=== PATIENT | female | born 1975 | race Caucasian/White ===

== ENCOUNTER 2022-11-19 09:54 | Inpatient (IN) ==
[2022-11-19] MEDS ORDERED: NovoLIN R (or HumuLIN R) SC PRN ×2 (12:06→20:32)
[2022-11-19] MEDS ORDERED: VISTARIL PO PRN (12:06)
[2022-11-19 13:44] LABS: BASOPHILS # (AUTO) 0.1 X10^3/uL (0.0-0.1); BASOPHILS % (AUTO) 0.6 % (0.2-1.0); EOSINOPHILS # (AUTO) 0.3 x10^3/uL (0.0-0.2); EOSINOPHILS % (AUTO) 2.3 % (0.9-2.9); HEMATOCRIT 48.3 % (36.0-47.0); HEMOGLOBIN 16.7 g/dL (12.0-16.0); LYMPHOCYTES # (AUTO) 2.7 X10^3/uL (1.3-2.9); LYMPHOCYTES % (AUTO) 19.1 % (21.0-51.0); MEAN CORPUSCULAR HEMOGLOBIN 27.6 pg (27.0-34.0); MEAN CORPUSCULAR HGB CONC 34.5 g/dL (33.0-35.0); MEAN CORPUSCULAR VOLUME 79.9 fL (80.0-100.0); MEAN PLATELET VOLUME 7.2 fL (7.4-11.0); MONOCYTES % (AUTO) 7.1 % (0.0-13.0); NEUTROPHILS # (AUTO) 10.1 x10^3/uL (2.2-4.8); NEUTROPHILS % (AUTO) 70.9 % (42.0-75.0); RED BLOOD COUNT 6.05 X10^6/uL (3.5-5.4); RED CELL DISTRIBUTION WIDTH 13.5 % (11.6-16.5); WHITE BLOOD COUNT 14.2 X10^3/uL (3.6-10.0)
[2022-11-19 13:57] LABS: ALANINE AMINOTRANSFERASE 25 Units/L (12-78); ALBUMIN 3.2 g/dL (3.4-5.0); ALKALINE PHOSPHATASE 131 Units/L (46-116); ASPARTATE AMINO TRANSFERASE 25 Units/L (15-37); BLOOD UREA NITROGEN 7 mg/dL (7-18); CALCIUM 9.3 mg/dL (8.5-10.1); CARBON DIOXIDE 30.5 mmol/L (21-32); CHLORIDE 94 mmol/L (98-107); COR CA(FOR HYPOALB) 9.9 mg/dL (8.5-10.1); COR NA(FOR HYPERGLY) 134 mmol/L (136-145); CREATININE 0.82 mg/dL (0.55-1.02); SODIUM 134 mmol/L (136-145); TOTAL PROTEIN 8.4 g/dL (6.4-8.2); eGFR NON BLACK RACES > 60 (>60)
[2022-11-19] MEDS: ZOSYN VIAL 3.375 GRAMS 3.375 G in NS 100 ML IV 100 ML IV SCH ×3 (14:15→21:26)
[2022-11-19] MEDS: LR 1,000 ML IV 1,000 ML IV SCH (14:27)
--- NOTE | 2022-11-19 16:52 | CT ---
HISTORYLEFT LEG ISCHEMIC ULCERSTUDYCTA AORTA WITH RUNOFFCOMPARISONTECHNIQUESpiral CT imaging was performed from the lung bases through the feet both before and after the intravenous administration of iodinated contrast. Axial, coronal, sagittal, and 3D images were generated. Dose reduction techniques including Automated Exposure Control (AEC) and adjustment of mA and kV were utilized.FINDINGSAbdomen/pelvis: The lung bases are clear without effusion. The heart size is normal. There is atherosclerosis in the LAD, 1st diagonal, circumflex, and RCA. The liver is normal. There is a stone in the gallbladder but no evidence for cholecystitis. The pancreas is mildly atrophic. The spleen, adrenal glands, and kidneys are normal. The stomach and small bowel are normal. The appendix is not visualized but there is no evidence for appendicitis. The large bowel is normal. The urinary bladder is normal. The uterus is atrophic. There is no adnexal mass. There is a wide postsurgical defect in the right lower abdominal wall with no risk for bowel obstruction.There is no aneurysm in the aorta. There is mild heterogeneous plaque in the abdominal aorta. There is no evidence for obstruction of the celiac trunk or the SMA or the proximal renal arteries. There is mild disease in the common iliac bilaterally. There is moderate disease in the external and internal iliac arteries. There is also heterogeneous plaque in the common femoral bilaterally, left worse than right.Right leg: There is heterogeneous plaque in the common femoral and in the superficial and deep femoral arteries. There is heterogeneous plaque in the popliteal artery. The anterior tibial artery is normal. There is heterogeneous plaque in the tibioperoneal trunk and in the posterior tibial artery proximally. There is 3 vessel runoff to the foot with the best flow in the anterior tibial artery.Left leg: There is heterogeneous plaque in the common femoral and severely in the superficial femoral. All flow ceases in the proximal to mid left SFA. There continues to be flow in the deep femoral artery. Contrast enhancement is again seen in the popliteal artery at the adductor hiatus. There is severe soft plaque in the popliteal artery. There is plaque at the origin of the anterior tibial artery and in the tibioperoneal trunk. There is 3 vessel flow to the ankle. The arterial flow and venous return are delayed in the left leg as compared to the right leg.IMPRESSION1. Complete occlusion of the left SFA with reconstitution at the adductor canal. 2. Fairly severe diffuse atherosclerosis bilaterally most pronounced from the external iliac arteries and distally. 3. Cholelithiasis.Electronically signed by: Nathaniel Sheldon (Nov 19, 2022 16:36:35)
--- NOTE | 2022-11-19 20:55 | DR.H&P ---
H&P History & Physical for Day of: H&P Date: 11/19/22 Chief Complaint Chief Complaint: 46 yo female with non-healing wound to the let heel and lateral foot with no palpable pulses of the left foot. Significant tobacco abuse and has diet controlled diabetes . Ulcer/ wound to the left lateral foot is painful. Duplex shows monophasic flow of the left superficial femoral artery and completely occluded left superficial femoral artery . Flow is near normal of the right leg. CTA performed today and showed complete total occlusion of the left SFA from its takeoff to the adductor canal. Diffuse arterial disease on the right leg arteries. No history of chest pain or shortness of breath. Allergies Allergies Allergy/AdvReac Type Severity Reaction Status Date / Time No Known Allergies Allergy Verified 11/19/22 14:04 History of Present Illness History of Present Illness: as above Past Medical History Past Medical History: Arthritis, Dyslipidemia and Hypertension Past Surgical History Surgical History: Appendectomy Family History Family Medical History: Cancer and Hypertension Social History Does patient currently use any type of tobacco product: Yes Have you used tobacco products in the last 12 months: Yes Type of Tobacco Use: Cigarettes How many years tobacco product used: 35 Packs per day or dips/chews per day: 1 Does any household member use tobacco: No Alcohol Use: None Drug Use: None Medications Home Medications: No Known Allergies Allergy (Verified 11/19/22 14:04) CONTINUE taking the following medications atorvastatin 40 mg tablet 40 mg PO HS 11/19/22 [History] cyclobenzaprine 10 mg tablet 10 mg PO BID 11/19/22 [History] gabapentin 600 mg tablet 300 mg PO HS 11/19/22 [History] glimepiride 2 mg tablet 2 mg PO DAILY 11/19/22 [History] hydroxyzine pamoate 25 mg capsule 25 mg PO HS 11/19/22 [History] lisinopril 20 mg tablet 20 mg PO DAILY 11/19/22 [History] meclizine 25 mg tablet 25 mg PO DAILY PRN 11/19/22 [History] metformin 500 mg tablet,extended release 24 hr 1,000 mg PO BID 11/19/22 [History] metoprolol tartrate 25 mg tablet 25 mg PO BID 11/19/22 [History] sulfamethoxazole 800 mg-trimethoprim 160 mg tablet (Bactrim DS) 1 tab PO BID 11/19/22 [History] Labs Result Diagrams: 11/19/22 13:33 11/19/22 13:33 Labs: Laboratory WBC 14.2 X10^3/uL (3.6-10.0) H 11/19/22 13:33 RBC 6.05 X10^6/uL (3.5-5.4) H 11/19/22 13:33 Hgb 16.7 g/dL (12.0-16.0) H 11/19/22 13:33 Hct 48.3 % (36.0-47.0) H 11/19/22 13:33 MCV 79.9 fL (80.0-100.0) L 11/19/22 13:33 MCH 27.6 pg (27.0-34.0) 11/19/22 13:33 MCHC 34.5 g/dL (33.0-35.0) 11/19/22 13:33 RDW 13.5 % (11.6-16.5) 11/19/22 13:33 Plt Count 411 X10^3/uL (150.0-450.0) 11/19/22 13:33 MPV 7.2 fL (7.4-11.0) L 11/19/22 13:33 Neut % (Auto) 70.9 % (42.0-75.0) 11/19/22 13:33 Lymph % (Auto) 19.1 % (21.0-51.0) L 11/19/22 13:33 [place] % (Auto) 7.1 % (0.0-13.0) 11/19/22 13:33 Eos % (Auto) 2.3 % (0.9-2.9) 11/19/22 13:33 Baso % (Auto) 0.6 % (0.2-1.0) 11/19/22 13:33 Neut # (Auto) 10.1 x10^3/uL (2.2-4.8) H 11/19/22 13:33 Lymph # (Auto) 2.7 X10^3/uL (1.3-2.9) 11/19/22 13:33 [place] # (Auto) 1.0 x10^3/uL (0.3-0.8) H 11/19/22 13:33 Eos # (Auto) 0.3 x10^3/uL (0.0-0.2) H 11/19/22 13:33 Baso # (Auto) 0.1 X10^3/uL (0.0-0.1) 11/19/22 13:33 Absolute Nucleated RBC 0.1 /100WBC 11/19/22 13:33 Sodium 134 mmol/L (136-145) L 11/19/22 13:33 Corrected Sodium 134 mmol/L (136-145) L 11/19/22 13:33 Potassium 3.9 mmol/L (3.5-5.1) 11/19/22 13:33 Chloride 94 mmol/L (98-107) L 11/19/22 13:33 Carbon Dioxide 30.5 mmol/L (21-32) 11/19/22 13:33 BUN 7 mg/dL (7-18) 11/19/22 13:33 Creatinine 0.82 mg/dL (0.55-1.02) 11/19/22 13:33 Est GFR (MDRD) Af Amer > 60 (>60) 11/19/22 13:33 Est GFR (MDRD) Non-Af > 60 (>60) 11/19/22 13:33 Glucose 117 mg/dL (65-99) H 11/19/22 13:33 POC Glucose (mg/dL) 113 mg/dL (65-99) H 11/19/22 15:50 Calcium 9.3 mg/dL (8.5-10.1) 11/19/22 13:33 Corrected Calcium 9.9 mg/dL (8.5-10.1) 11/19/22 13:33 Total Bilirubin 0.70 mg/dL (0.2-1.0) 11/19/22 13:33 AST 25 Units/L (15-37) 11/19/22 13:33 ALT 25 Units/L (12-78) 11/19/22 13:33 Alkaline Phosphatase 131 Units/L (46-116) H 11/19/22 13:33 Total Protein 8.4 g/dL (6.4-8.2) H 11/19/22 13:33 Albumin 3.2 g/dL (3.4-5.0) L 11/19/22 13:33 Globulin 5.2 g/dL (2.5-4.5) H 11/19/22 13:33 Albumin/Globulin Ratio 0.6 Ratio (1.1-2.1) L 11/19/22 13:33 Review of Systems Constitutional: See HPI Eyes: No Symptoms Reported ENT: No Symptoms Reported Respiratory: No Symptoms Reported Cardiovascular: No Symptoms Reported Gastrointestinal: No Symptoms Reported Genitourinary: No Symptoms Reported Musculoskeletal: See HPI Skin: See HPI Neurological: No Symptoms Reported Physical Exam Vital Signs: Temperature 98 F Pulse Rate [Left Radial] 92 Respiratory Rate 18 Blood Pressure [Left Arm] 138/78 O2 Sat by Pulse Oximetry 95 Oriented: Normal, Time, Person and Place Eyes: Normal; negative Blurred Vision or Diplopia Ear: Normal Nose: Normal Throat: Normal Respiratory: Clear Throughout Cardiovascular: Normal : Normal; negative Dysuria or Discharge Auscultation: Bowel Sounds: Normal Palpation: Normal Tenderness: Normal Skin: Wound (6x 6 x 1 cm necrotic wound to the left heel and posterior lateral foot. ) Musculoskeletal: Normal Psychiatric: Normal Mood Description: Fearful Affect: Anxious Speech Pattern: Clear Assessment/Plan (1) Atherosclerosis of [place] arteries of extremities with rest pain, right leg: Status: Acute Plan: To OR in AM for arteriogram left leg, atherectomy and drug coated balloon angioplasty of occluded left superficial femoral artery. High risk of limb loss. Risk of discussed with the patient. She agrees to proceed. (2) Type 2 diabetes mellitus without complications: Status: Acute Plan: Sliding scale insulin, check HgB A1c (3) Essential (primary) hypertension: Status: Acute Plan: Home medications (4) Endogenous hyperlipidemia: Status: Acute Plan: Home medications (5) Neuropathic diabetic ulcer of foot: Status: Acute (6) Cellulitis of left foot: Status: Acute Plan: IV antibiotics (7) Tobacco use: Status: Acute Review H&P Reviewed: Yes Patient was examined?: Yes
[2022-11-19] MEDS: FLEXERIL TAB 10 MG PO SCH (21:27)
[2022-11-19] MEDS: LOPRESSOR TAB 25 MG PO SCH (21:27)
[2022-11-19] MEDS: PERCOCET TAB 5/325 MG PO PRN (21:35)
[2022-11-20] MEDS: LR 1,000 ML IV 1,000 ML IV SCH ×3 (01:18→18:07)
[2022-11-20] MEDS: ZOSYN VIAL 3.375 GRAMS 3.375 G in NS 100 ML IV 100 ML IV SCH ×3 (05:05→21:47)
[2022-11-20] MEDS: CLARITIN PO SCH (08:14)
[2022-11-20] MEDS: ANTIVERT TAB 25 MG PO SCH (08:14)
[2022-11-20] MEDS: FLEXERIL TAB 10 MG PO SCH ×2 (08:15→20:23)
[2022-11-20] MEDS: MOBIC TAB 15 MG PO SCH (08:15)
[2022-11-20] MEDS: LOPRESSOR TAB 25 MG PO SCH ×2 (08:15→20:23)
[2022-11-20] MEDS: LIPITOR TAB 40 MG PO SCH (08:15)
[2022-11-20] MEDS: ZESTRIL TAB 20 MG PO SCH (08:15)
[2022-11-20] MEDS: NORVASC TAB 5 MG PO SCH (08:15)
[2022-11-20] MEDS: FLONASE NASAL SPRAY ENOSTRIL SCH (09:12)
--- NOTE | 2022-11-20 10:41 | RAD ---
HISTORYPreop wound surgerySTUDYChest AP portableCOMPARISONNoneFINDINGSHeart size is normal. Lulú are normal. Lung collazo are clear. No pleural effusions are identified. Bony thorax is unremarkable.IMPRESSIONNo significant abnormality identifiedElectronically signed by: FAISAL RANDHAWA (Nov 20, 2022 10:40:23)
[2022-11-20] MEDS ORDERED: NS 1,000 ML IV 1,000 ML ONE ×2 (13:34→15:51)
[2022-11-20] MEDS ORDERED: NS 100 ML IV 100 ML ONE (13:34)
[2022-11-20] MEDS ORDERED: ANCEF VIAL 1 GRAM ONE (13:34)
[2022-11-20] MEDS ORDERED: HEPARIN SODIUM IN D5W 75,000 UNITS/1,500 ML BAG ONE (13:42)
[2022-11-20] MEDS ORDERED: MARCAINE/EPINEPHRINE ONE (13:42)
[2022-11-20] MEDS ORDERED: FENTANYL VIAL INJ 100 mcg ONE ×2 (13:46→15:19)
[2022-11-20] MEDS ORDERED: VERSED ONE (13:46)
[2022-11-20] MEDS ORDERED: DIPRIVAN VIAL 40 ML ONE ×2 (13:46→15:06)
[2022-11-20] MEDS ORDERED: KETAMINE HCL ONE (14:19)
[2022-11-20] MEDS ORDERED: PRECEDEX INJ VIAL IVP ONE (14:28)
[2022-11-20] MEDS ORDERED: HEPARIN SODIUM INJ 5000 UNITS ONE (14:56)
[2022-11-20] MEDS ORDERED: NS 500 ML IV 500 ML IV ONE (15:33)
[2022-11-20] MEDS: HEPARIN SODIUM INJ 5000 UNITS ONE ×2 (15:49)
[2022-11-20] MEDS ORDERED: DIPRIVAN VIAL 20 ML ONE (15:57)
[2022-11-20] MEDS ORDERED: PROTAMINE SULFATE 50 MG VIAL ONE ×2 (16:12)
[2022-11-20] MEDS ORDERED: NEOSPORIN OINT ONE (16:29)
--- NOTE | 2022-11-20 17:28 | OR.IMMED ---
IMMEDIATE POST-OP NOTE Immediate Post-Op Note Pre-Op Diagnosis: Severe limb threatening ischemia left leg with necrotic woun d left lateral foot and left heel Post-Op Diagnosis: same Procedure: aortogram,arteriogram left leg , atherectomy and drug coated balloon angioplasty completely occluded left superficial femoral artery, angioplasty left posterior tibial artery. Description of Procedure: see operative summary Surgeon/Hr Manager: Tyler Findings: ESTIMATOR JEWELRY of entir left SFA from its takeoff to the adductor canal, severe disease left posterior tibial artery Estimated Blood Loss: 150 cc Drains: NONE Complications: none Progress Notes: Return to floor, continue diet, Continue IV antibiotics
[2022-11-20] MEDS: PERCOCET TAB 5/325 MG PO PRN (18:23)
[2022-11-20] MEDS: XARELTO PO SCH (20:23)
[2022-11-21] MEDS: LR 1,000 ML IV 1,000 ML IV SCH ×2 (04:00→16:28)
[2022-11-21] MEDS: PERCOCET TAB 5/325 MG PO PRN ×2 (04:01→13:39)
[2022-11-21] MEDS: ZOSYN VIAL 3.375 GRAMS 3.375 G in NS 100 ML IV 100 ML IV SCH ×3 (05:05→21:31)
[2022-11-21] MEDS ORDERED: ZESTRIL TAB 20 MG ONE (08:04)
[2022-11-21] MEDS: NORVASC TAB 5 MG PO SCH ×2 (08:40→08:46)
[2022-11-21] MEDS: LIPITOR TAB 40 MG PO SCH (08:42)
[2022-11-21] MEDS: MOBIC TAB 15 MG PO SCH (08:43)
[2022-11-21] MEDS: ASPIRIN EC 81 MG PO SCH (08:43)
[2022-11-21] MEDS: CLARITIN PO SCH ×2 (08:43→08:45)
[2022-11-21] MEDS: FLEXERIL TAB 10 MG PO SCH ×2 (08:43→21:19)
[2022-11-21] MEDS: XARELTO PO SCH ×2 (08:43→21:20)
[2022-11-21] MEDS: LOPRESSOR TAB 25 MG PO SCH ×3 (08:44→21:31)
[2022-11-21] MEDS: ANTIVERT TAB 25 MG PO SCH (08:44)
[2022-11-21] MEDS: FLONASE NASAL SPRAY ENOSTRIL SCH (08:45)
[2022-11-21] MEDS: ZESTRIL TAB 20 MG PO SCH (08:45)
[2022-11-21 09:55] LABS: BASOPHILS # (AUTO) 0.1 X10^3/uL (0.0-0.1); BASOPHILS % (AUTO) 0.7 % (0.2-1.0); EOSINOPHILS # (AUTO) 0.3 x10^3/uL (0.0-0.2); EOSINOPHILS % (AUTO) 3.4 % (0.9-2.9); HEMATOCRIT 42.1 % (36.0-47.0); HEMOGLOBIN 14.4 g/dL (12.0-16.0); LYMPHOCYTES % (AUTO) 21.8 % (21.0-51.0); MEAN CORPUSCULAR HEMOGLOBIN 27.5 pg (27.0-34.0); MEAN CORPUSCULAR HGB CONC 34.1 g/dL (33.0-35.0); MEAN CORPUSCULAR VOLUME 80.6 fL (80.0-100.0); MEAN PLATELET VOLUME 7.4 fL (7.4-11.0); MONOCYTES # (AUTO) 0.6 x10^3/uL (0.3-0.8); MONOCYTES % (AUTO) 6.8 % (0.0-13.0); NEUTROPHILS % (AUTO) 67.3 % (42.0-75.0); RED BLOOD COUNT 5.22 X10^6/uL (3.5-5.4); RED CELL DISTRIBUTION WIDTH 13.3 % (11.6-16.5)
[2022-11-21 10:02] LABS: ALANINE AMINOTRANSFERASE 19 Units/L (12-78); ALBUMIN 2.5 g/dL (3.4-5.0); ALKALINE PHOSPHATASE 97 Units/L (46-116); ASPARTATE AMINO TRANSFERASE 27 Units/L (15-37); BLOOD UREA NITROGEN 4 mg/dL (7-18); CALCIUM 8.1 mg/dL (8.5-10.1); CARBON DIOXIDE 28.6 mmol/L (21-32); CHLORIDE 102 mmol/L (98-107); COR CA(FOR HYPOALB) 9.3 mg/dL (8.5-10.1); COR NA(FOR HYPERGLY) 140 mmol/L (136-145); SODIUM 138 mmol/L (136-145); TOTAL PROTEIN 6.4 g/dL (6.4-8.2); eGFR NON BLACK RACES > 60 (>60)
--- NOTE | 2022-11-21 19:11 | NOTE.SOAP ---
Soap Note Note for Day of Date of Exam: 11/21/22 Subjective Data Subjective Data: POD # 1 s/p left SFA atherectomy and drug coated balloon angioplasty and angioplasty left posterior tibial artery . Doing well. Objective Data Temperature: 98.3 F Pulse Rate: 20 Respiratory Rate: 20 Blood Pressure: 135/73 O2 Sat by Pulse Oximetry: 97 Objective Data: Left foot warm with biphasic dopplers signals of both DP and PT arteries on left . Wound to left lateral foot and heel not uncovered today. Hgb= 14.4, Cr=0.8 Assessment Assessment: Wound of left foot with severe ischemia now s/p revssculariation left leg. Plan Plan: Continue IV antibiotics . Plan debridement of left foot next week.
[2022-11-22 05:53] LABS: BASOPHILS # (AUTO) 0.1 X10^3/uL (0.0-0.1); BASOPHILS % (AUTO) 0.8 % (0.2-1.0); EOSINOPHILS # (AUTO) 0.5 x10^3/uL (0.0-0.2); EOSINOPHILS % (AUTO) 5.4 % (0.9-2.9); HEMATOCRIT 41.6 % (36.0-47.0); HEMOGLOBIN 14.2 g/dL (12.0-16.0); LYMPHOCYTES # (AUTO) 2.6 X10^3/uL (1.3-2.9); LYMPHOCYTES % (AUTO) 29.3 % (21.0-51.0); MEAN CORPUSCULAR HEMOGLOBIN 27.2 pg (27.0-34.0); MEAN PLATELET VOLUME 7.7 fL (7.4-11.0); MONOCYTES # (AUTO) 0.7 x10^3/uL (0.3-0.8); MONOCYTES % (AUTO) 7.6 % (0.0-13.0); NEUTROPHILS % (AUTO) 56.9 % (42.0-75.0); RED CELL DISTRIBUTION WIDTH 13.3 % (11.6-16.5); WHITE BLOOD COUNT 8.7 X10^3/uL (3.6-10.0)
[2022-11-22] MEDS: ZOSYN VIAL 3.375 GRAMS 3.375 G in NS 100 ML IV 100 ML IV SCH ×3 (06:01→21:01)
[2022-11-22 06:04] LABS: ALANINE AMINOTRANSFERASE 29 Units/L (12-78); ALBUMIN 2.5 g/dL (3.4-5.0); ALKALINE PHOSPHATASE 109 Units/L (46-116); ASPARTATE AMINO TRANSFERASE 33 Units/L (15-37); BLOOD UREA NITROGEN 4 mg/dL (7-18); CALCIUM 8.3 mg/dL (8.5-10.1); CARBON DIOXIDE 29.5 mmol/L (21-32); CHLORIDE 104 mmol/L (98-107); COR CA(FOR HYPOALB) 9.5 mg/dL (8.5-10.1); COR NA(FOR HYPERGLY) 142 mmol/L (136-145); CREATININE 0.67 mg/dL (0.55-1.02); SODIUM 141 mmol/L (136-145); TOTAL PROTEIN 6.5 g/dL (6.4-8.2); eGFR NON BLACK RACES > 60 (>60)
[2022-11-22] MEDS ORDERED: ZESTRIL TAB 20 MG ONE (09:33)
[2022-11-22] MEDS: CLARITIN PO SCH (09:45)
[2022-11-22] MEDS: FLONASE NASAL SPRAY ENOSTRIL SCH (09:45)
[2022-11-22] MEDS: MOBIC TAB 15 MG PO SCH (09:45)
[2022-11-22] MEDS: FLEXERIL TAB 10 MG PO SCH ×2 (09:47→21:02)
[2022-11-22] MEDS: LIPITOR TAB 40 MG PO SCH (09:47)
[2022-11-22] MEDS: XARELTO PO SCH ×2 (09:47→21:02)
[2022-11-22] MEDS: ASPIRIN EC 81 MG PO SCH (09:48)
[2022-11-22] MEDS: ZESTRIL TAB 20 MG PO SCH (09:50)
[2022-11-22] MEDS: LOPRESSOR TAB 25 MG PO SCH ×2 (09:51→21:02)
[2022-11-22] MEDS: ANTIVERT TAB 25 MG PO SCH (09:51)
[2022-11-22] MEDS: NORVASC TAB 5 MG PO SCH (09:51)
[2022-11-22] MEDS: PERCOCET TAB 5/325 MG PO PRN (18:25)
[2022-11-23] MEDS: ZOSYN VIAL 3.375 GRAMS 3.375 G in NS 100 ML IV 100 ML IV SCH ×3 (05:51→21:00)
[2022-11-23 06:26] LABS: BASOPHILS # (AUTO) 0.1 X10^3/uL (0.0-0.1); BASOPHILS % (AUTO) 0.6 % (0.2-1.0); EOSINOPHILS # (AUTO) 0.6 x10^3/uL (0.0-0.2); EOSINOPHILS % (AUTO) 6.2 % (0.9-2.9); HEMATOCRIT 40.3 % (36.0-47.0); HEMOGLOBIN 13.6 g/dL (12.0-16.0); LYMPHOCYTES # (AUTO) 3.1 X10^3/uL (1.3-2.9); LYMPHOCYTES % (AUTO) 33.2 % (21.0-51.0); MEAN CORPUSCULAR HEMOGLOBIN 27.4 pg (27.0-34.0); MEAN CORPUSCULAR HGB CONC 33.9 g/dL (33.0-35.0); MEAN CORPUSCULAR VOLUME 80.9 fL (80.0-100.0); MONOCYTES # (AUTO) 0.7 x10^3/uL (0.3-0.8); MONOCYTES % (AUTO) 8.1 % (0.0-13.0); NEUTROPHILS # (AUTO) 4.8 x10^3/uL (2.2-4.8); NEUTROPHILS % (AUTO) 51.9 % (42.0-75.0); RED BLOOD COUNT 4.98 X10^6/uL (3.5-5.4); RED CELL DISTRIBUTION WIDTH 13.7 % (11.6-16.5); WHITE BLOOD COUNT 9.2 X10^3/uL (3.6-10.0)
[2022-11-23 06:44] LABS: ALANINE AMINOTRANSFERASE 29 Units/L (12-78); ALBUMIN 2.4 g/dL (3.4-5.0); ALKALINE PHOSPHATASE 105 Units/L (46-116); ASPARTATE AMINO TRANSFERASE 30 Units/L (15-37); BLOOD UREA NITROGEN 8 mg/dL (7-18); CALCIUM 8.1 mg/dL (8.5-10.1); CARBON DIOXIDE 29.3 mmol/L (21-32); CHLORIDE 103 mmol/L (98-107); COR CA(FOR HYPOALB) 9.4 mg/dL (8.5-10.1); COR NA(FOR HYPERGLY) 141 mmol/L (136-145); SODIUM 140 mmol/L (136-145); TOTAL PROTEIN 6.2 g/dL (6.4-8.2); eGFR NON BLACK RACES > 60 (>60)
[2022-11-23] MEDS ORDERED: ZESTRIL TAB 20 MG ONE (08:35)
[2022-11-23] MEDS: LOPRESSOR TAB 25 MG PO SCH ×2 (08:51→21:01)
[2022-11-23] MEDS: MOBIC TAB 15 MG PO SCH (08:51)
[2022-11-23] MEDS: ASPIRIN EC 81 MG PO SCH (08:51)
[2022-11-23] MEDS: LIPITOR TAB 40 MG PO SCH (08:51)
[2022-11-23] MEDS: FLEXERIL TAB 10 MG PO SCH ×2 (08:51→21:00)
[2022-11-23] MEDS: ANTIVERT TAB 25 MG PO SCH (08:52)
[2022-11-23] MEDS: XARELTO PO SCH ×2 (08:52→21:00)
[2022-11-23] MEDS: CLARITIN PO SCH (09:00)
[2022-11-23] MEDS: ZESTRIL TAB 20 MG PO SCH (09:00)
[2022-11-23] MEDS: NORVASC TAB 5 MG PO SCH (09:01)
[2022-11-23] MEDS: FLONASE NASAL SPRAY ENOSTRIL SCH (09:01)
--- NOTE | 2022-11-23 09:23 | NOTE.SOAP ---
Soap Note Note for Day of Date of Exam: 11/22/22 Subjective Data Subjective Data: Status post atherectomy and drug-coated balloon angioplasty of a completely occluded left superficial femoral artery and angioplasty of the left posterior tibial artery for a severely ischaemic left foot with non-healing wound / cellulitis .Continues to improve. Rest pain resolved. Objective Data Temperature: 97.5 F Pulse Rate: 71 Respiratory Rate: 20 Blood Pressure: 138/81 O2 Sat by Pulse Oximetry: 98 Objective Data: all labs look good. Biphasic doppler signal of the left PT and DP. Redness lef heel and lateral foot improved. Assessment Assessment: Ischemic left foot with non healing wound to the left foot, improving Plan Plan: Continue IV antibiotics. Will debride left foot wound Thursday.
[2022-11-23] MEDS ORDERED: GLUCOPHAGE ONE (17:22)
--- NOTE | 2022-11-23 19:48 | NOTE.SOAP ---
Soap Note Note for Day of Date of Exam: 11/23/22 Subjective Data Subjective Data: S/P revascularization left leg complete total occlusion of the entire left superficial femoral artery and balloon angioplasty for stenotic left posterior tibial artery for cellulitic, non healing wound to the left lateral foot and heal. Objective Data Temperature: 98.3 F Pulse Rate: 68 Respiratory Rate: 18 Blood Pressure: 158/87 O2 Sat by Pulse Oximetry: 99 Objective Data: WARM left foot . Rest pain resolved. Wound left foot and ankle improved, less red and smaller. Assessment Assessment: Infected , non healing wound left foot secondary to severe ischemia. Ischemia resolved. Plan Plan: Continue IV antibiotics and plan debridement left foot wound tomorrow.
[2022-11-24 05:22] LABS: BASOPHILS # (AUTO) 0.1 X10^3/uL (0.0-0.1); BASOPHILS % (AUTO) 0.6 % (0.2-1.0); EOSINOPHILS # (AUTO) 0.6 x10^3/uL (0.0-0.2); EOSINOPHILS % (AUTO) 5.4 % (0.9-2.9); HEMATOCRIT 41.3 % (36.0-47.0); HEMOGLOBIN 14.2 g/dL (12.0-16.0); LYMPHOCYTES # (AUTO) 2.7 X10^3/uL (1.3-2.9); LYMPHOCYTES % (AUTO) 25.6 % (21.0-51.0); MEAN CORPUSCULAR HEMOGLOBIN 27.4 pg (27.0-34.0); MEAN CORPUSCULAR HGB CONC 34.4 g/dL (33.0-35.0); MEAN CORPUSCULAR VOLUME 79.7 fL (80.0-100.0); MONOCYTES # (AUTO) 0.7 x10^3/uL (0.3-0.8); MONOCYTES % (AUTO) 6.7 % (0.0-13.0); NEUTROPHILS # (AUTO) 6.5 x10^3/uL (2.2-4.8); NEUTROPHILS % (AUTO) 61.7 % (42.0-75.0); RED BLOOD COUNT 5.18 X10^6/uL (3.5-5.4); RED CELL DISTRIBUTION WIDTH 13.6 % (11.6-16.5); WHITE BLOOD COUNT 10.6 X10^3/uL (3.6-10.0)
[2022-11-24] MEDS: ZOSYN VIAL 3.375 GRAMS 3.375 G in NS 100 ML IV 100 ML IV SCH ×3 (05:28→21:08)
[2022-11-24 05:32] LABS: ALANINE AMINOTRANSFERASE 30 Units/L (12-78); ALBUMIN 2.7 g/dL (3.4-5.0); ALKALINE PHOSPHATASE 100 Units/L (46-116); ASPARTATE AMINO TRANSFERASE 22 Units/L (15-37); BLOOD UREA NITROGEN 8 mg/dL (7-18); CALCIUM 8.6 mg/dL (8.5-10.1); CARBON DIOXIDE 30.1 mmol/L (21-32); CHLORIDE 103 mmol/L (98-107); COR CA(FOR HYPOALB) 9.6 mg/dL (8.5-10.1); COR NA(FOR HYPERGLY) 141 mmol/L (136-145); CREATININE 0.77 mg/dL (0.55-1.02); SODIUM 140 mmol/L (136-145); TOTAL PROTEIN 6.5 g/dL (6.4-8.2); eGFR NON BLACK RACES > 60 (>60)
[2022-11-24] MEDS: GLUCOPHAGE PO SCH ×2 (06:08→17:25)
--- NOTE | 2022-11-24 06:27 | EKG ---
Test Reason : Surgery this am Blood Pressure : */* mmHG Vent. Rate : 78 BPM Atrial Rate : 78 BPM P-R Int : 134 ms QRS Dur : 78 ms QT Int : 404 ms P-R-T Axes : 51 72 51 degrees QTc Int : 460 ms Normal sinus rhythm Normal ECG Confirmed by Jerome Jo ([id number]) on 11/26/2022 11:20:45 AM Referred By: Confirmed By: Jerome Jo
[2022-11-24] MEDS ORDERED: ZESTRIL TAB 20 MG ONE (09:12)
[2022-11-24] MEDS ORDERED: VERSED ONE (09:18)
[2022-11-24] MEDS ORDERED: FENTANYL VIAL INJ 100 mcg ONE (09:18)
[2022-11-24] MEDS ORDERED: TORADOL 30 MG VIAL ONE (09:19)
[2022-11-24] MEDS ORDERED: DIPRIVAN VIAL 20 ML ONE (09:19)
[2022-11-24] MEDS ORDERED: KETAMINE HCL ONE (09:26)
[2022-11-24] MEDS ORDERED: NS 1,000 ML IV 1,000 ML ONE (10:21)
[2022-11-24] MEDS ORDERED: BETADINE SOLN ONE (10:48)
[2022-11-24] MEDS ORDERED: POLYMYXIN B SULFATE ONE (10:55)
[2022-11-24] MEDS ORDERED: MARCAINE 0.25% INJ ONE (11:05)
--- NOTE | 2022-11-24 11:40 | OR.IMMED ---
IMMEDIATE POST-OP NOTE Immediate Post-Op Note Pre-Op Diagnosis: Ischemic let leg( resolved) with left foot and heel wound Post-Op Diagnosis: same Procedure: Excisional debridement left lateral foot and heel. Description of Procedure: see operative summay Surgeon/Electromechanical Equipment Assembler: Tyler Findings: as above Estimated Blood Loss: minimal Progress Notes: REturn to [facility] . d/c home soon
[2022-11-24] MEDS: LIPITOR TAB 40 MG PO SCH (14:24)
[2022-11-24] MEDS: NORVASC TAB 5 MG PO SCH (14:24)
[2022-11-24] MEDS: ANTIVERT TAB 25 MG PO SCH (14:24)
[2022-11-24] MEDS: FLEXERIL TAB 10 MG PO SCH ×2 (14:24→21:07)
[2022-11-24] MEDS: LOPRESSOR TAB 25 MG PO SCH ×2 (14:24→21:07)
[2022-11-24] MEDS: MOBIC TAB 15 MG PO SCH (14:24)
[2022-11-24] MEDS: CLARITIN PO SCH (14:25)
[2022-11-24] MEDS: ZESTRIL TAB 20 MG PO SCH (14:25)
[2022-11-24] MEDS: FLONASE NASAL SPRAY ENOSTRIL SCH (14:26)
[2022-11-24] MEDS: XARELTO PO SCH ×2 (14:28→21:07)
[2022-11-24] MEDS ORDERED: NS 250 ML IV 250 ML IV ONE (14:33)
[2022-11-24] MEDS: ASPIRIN EC 81 MG PO SCH (15:00)
[2022-11-24] MEDS ORDERED: GLUCOPHAGE ONE (17:16)
[2022-11-24] MEDS: PERCOCET TAB 5/325 MG PO PRN (21:42)
[2022-11-25] MEDS ORDERED: GLUCOPHAGE ONE (05:05)
[2022-11-25] MEDS: ZOSYN VIAL 3.375 GRAMS 3.375 G in NS 100 ML IV 100 ML IV SCH (05:30)
[2022-11-25] MEDS: XARELTO PO SCH (08:38)
[2022-11-25] MEDS: MOBIC TAB 15 MG PO SCH (08:38)
[2022-11-25] MEDS: FLEXERIL TAB 10 MG PO SCH (08:38)
[2022-11-25] MEDS: CLARITIN PO SCH (08:38)
[2022-11-25] MEDS: LOPRESSOR TAB 25 MG PO SCH ×2 (08:38→08:44)
[2022-11-25] MEDS: ASPIRIN EC 81 MG PO SCH (08:38)
[2022-11-25] MEDS: ANTIVERT TAB 25 MG PO SCH (08:38)
[2022-11-25] MEDS: LIPITOR TAB 40 MG PO SCH (08:38)
[2022-11-25] MEDS: FLONASE NASAL SPRAY ENOSTRIL SCH (08:40)
[2022-11-25] MEDS: NORVASC TAB 5 MG PO SCH (08:40)
[2022-11-25] MEDS: ZESTRIL TAB 20 MG PO SCH (08:42)
--- NOTE | 2022-11-25 11:06 | W.DIS.FURT ---
Summary of Discharge Discharge Summary of Date Date of Exam: 11/25/22 Admission Date Date of Admission: 11/19/22 Admission Diagnosis Hospital Course: 46 year old female transferred to [facility] from an outside facility with non-healing wound to the left heel and left lateral foot with cellulitis and rest pain. She had no palpable pulses of the left foot. Good pulses in the left groin. The patient was admitted on the 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 The next day she underwent atherectomy and drug coated ballon angioplasty of the entire left superficial femoral artery and angioplasty of the left posterior tibial artery . Arterial flow re- established in the left foot. She continued on IV antibiotics and was returned to the operating Suite on November 24 for debridement of the left lateral foot which continues to improve. She will be discharged today on clindamycin 150 mg qid, aspirin 81 mg daily, Xarelto 2.5 mg BID and her usual home medications. She will follow up with [facility] in 1 week. She will follow up with Dr. Gandhi in one week as well. Apply Bacitracin to left foot wound BID. Wash with soap and water once per day. Vital Signs: Vital Signs (72 hours) 11/23/22 19:48 11/23/22 09:23 11/22/22 12:00 Temperature 98.3 F 97.5 F L 97.5 F L Pulse Rate 68 71 Pulse Rate [Left Radial] 78 Respiratory Rate 18 20 20 Blood Pressure 158/87 138/81 Blood Pressure [Left Arm] Blood Pressure [Right Arm] 153/79 O2 Sat by Pulse Oximetry 99 98 98 Oxygen Delivery Method Room Air 11/22/22 16:00 11/22/22 18:25 11/22/22 20:00 Temperature 98.1 F 98.5 F Pulse Rate Pulse Rate [Left Radial] 75 81 Respiratory Rate 18 18 20 Blood Pressure Blood Pressure [Left Arm] 138/81 138/81 Blood Pressure [Right Arm] 144/80 O2 Sat by Pulse Oximetry 99 95 Oxygen Delivery Method Room Air Room Air 11/22/22 19:00 11/23/22 00:00 11/22/22 19:25 Temperature 98.4 F Pulse Rate Pulse Rate [Left Radial] 63 Respiratory Rate 20 18 Blood Pressure Blood Pressure [Left Arm] 138/81 Blood Pressure [Right Arm] 134/72 O2 Sat by Pulse Oximetry 98 Oxygen Delivery Method Room Air Room Air 11/23/22 04:00 11/23/22 07:28 11/23/22 08:00 Temperature 97.9 F 97.6 F Pulse Rate Pulse Rate [Left Radial] 74 72 Respiratory Rate 20 18 Blood Pressure Blood Pressure [Left Arm] 138/81 Blood Pressure [Right Arm] 122/70 146/84 O2 Sat by Pulse Oximetry 100 98 Oxygen Delivery Method Room Air Room Air Room Air 11/23/22 12:00 11/23/22 16:00 11/23/22 20:00 Temperature 98 F 98.3 F 98.1 F Pulse Rate Pulse Rate [Left Radial] 72 68 74 Respiratory Rate 18 18 20 Blood Pressure Blood Pressure [Left Arm] Blood Pressure [Right Arm] 145/81 158/87 150/78 O2 Sat by Pulse Oximetry 99 99 98 Oxygen Delivery Method Room Air Room Air Room Air 11/23/22 19:00 11/24/22 00:00 11/24/22 04:00 Temperature 97.9 F 98.0 F Pulse Rate Pulse Rate [Left Radial] 71 67 Respiratory Rate 20 20 Blood Pressure Blood Pressure [Left Arm] Blood Pressure [Right Arm] 152/80 151/72 O2 Sat by Pulse Oximetry 97 98 Oxygen Delivery Method Room Air Room Air Room Air 11/24/22 07:00 11/24/22 10:28 11/24/22 08:00 Temperature 98.6 F 97.8 F Pulse Rate 73 Pulse Rate [Left Radial] 72 Respiratory Rate 18 18 Blood Pressure 144/81 Blood Pressure [Left Arm] Blood Pressure [Right Arm] 151/77 O2 Sat by Pulse Oximetry 97 99 Oxygen Delivery Method Room Air Room Air Room Air 11/24/22 11:45 11/24/22 12:00 11/24/22 12:15 Temperature 97.8 F 97.8 F 97.8 F Pulse Rate Pulse Rate [Left Radial] 84 86 84 Respiratory Rate 18 18 18 Blood Pressure Blood Pressure [Left Arm] Blood Pressure [Right Arm] 146/86 128/70 140/74 O2 Sat by Pulse Oximetry 98 97 97 Oxygen Delivery Method Room Air Room Air Room Air 11/24/22 12:30 11/24/22 12:45 11/24/22 13:45 Temperature 97.8 F 98.2 F 98.4 F Pulse Rate Pulse Rate [Left Radial] 72 70 76 Respiratory Rate 18 18 18 Blood Pressure Blood Pressure [Left Arm] Blood Pressure [Right Arm] 149/73 158/84 162/85 O2 Sat by Pulse Oximetry 97 91 L 96 Oxygen Delivery Method Room Air Room Air Room Air 11/24/22 14:45 11/24/22 15:45 11/24/22 16:45 Temperature 98.0 F 97.8 F 97.0 F L Pulse Rate Pulse Rate [Left Radial] 78 72 71 Respiratory Rate 18 18 18 Blood Pressure Blood Pressure [Left Arm] Blood Pressure [Right Arm] 147/73 119/73 116/69 O2 Sat by Pulse Oximetry 98 96 97 Oxygen Delivery Method Room Air Room Air Room Air 11/24/22 21:42 11/24/22 19:00 11/24/22 20:00 Temperature 98.3 F Pulse Rate Pulse Rate [Left Radial] 67 Respiratory Rate 18 21 Blood Pressure Blood Pressure [Left Arm] Blood Pressure [Right Arm] 134/71 O2 Sat by Pulse Oximetry 97 Oxygen Delivery Method Room Air Room Air 11/24/22 22:42 11/25/22 00:00 11/25/22 04:00 Temperature 97.5 F L 97.8 F Pulse Rate Pulse Rate [Left Radial] 63 56 L Respiratory Rate 12 20 20 Blood Pressure Blood Pressure [Left Arm] Blood Pressure [Right Arm] 133/62 110/65 O2 Sat by Pulse Oximetry 97 97 Oxygen Delivery Method Room Air Room Air 11/25/22 07:00 Temperature Pulse Rate Pulse Rate [Left Radial] Respiratory Rate Blood Pressure Blood Pressure [Left Arm] Blood Pressure [Right Arm] O2 Sat by Pulse Oximetry Oxygen Delivery Method Room Air Labs: Laboratory Last Values WBC 10.6 X10^3/uL (3.6-10.0) H 11/24/22 04:36 RBC 5.18 X10^6/uL (3.5-5.4) 11/24/22 04:36 Hgb 14.2 g/dL (12.0-16.0) 11/24/22 04:36 Hct 41.3 % (36.0-47.0) 11/24/22 04:36 MCV 79.7 fL (80.0-100.0) L 11/24/22 04:36 MCH 27.4 pg (27.0-34.0) 11/24/22 04:36 MCHC 34.4 g/dL (33.0-35.0) 11/24/22 04:36 RDW 13.6 % (11.6-16.5) 11/24/22 04:36 Plt Count 312 X10^3/uL (150.0-450.0) 11/24/22 04:36 MPV 8.0 fL (7.4-11.0) 11/24/22 04:36 Neut % (Auto) 61.7 % (42.0-75.0) 11/24/22 04:36 Lymph % (Auto) 25.6 % (21.0-51.0) 11/24/22 04:36 Bryan % (Auto) 6.7 % (0.0-13.0) 11/24/22 04:36 Eos % (Auto) 5.4 % (0.9-2.9) H 11/24/22 04:36 Baso % (Auto) 0.6 % (0.2-1.0) 11/24/22 04:36 Neut # (Auto) 6.5 x10^3/uL (2.2-4.8) H 11/24/22 04:36 Lymph # (Auto) 2.7 X10^3/uL (1.3-2.9) 11/24/22 04:36 Bryan # (Auto) 0.7 x10^3/uL (0.3-0.8) 11/24/22 04:36 Eos # (Auto) 0.6 x10^3/uL (0.0-0.2) H 11/24/22 04:36 Baso # (Auto) 0.1 X10^3/uL (0.0-0.1) 11/24/22 04:36 Absolute Nucleated RBC 0.0 /100WBC 11/24/22 04:36 Sodium 140 mmol/L (136-145) 11/24/22 04:36 Corrected Sodium 141 mmol/L (136-145) 11/24/22 04:36 Potassium 3.6 mmol/L (3.5-5.1) 11/24/22 04:36 Chloride 103 mmol/L (98-107) 11/24/22 04:36 Carbon Dioxide 30.1 mmol/L (21-32) 11/24/22 04:36 BUN 8 mg/dL (7-18) 11/24/22 04:36 Creatinine 0.77 mg/dL (0.55-1.02) 11/24/22 04:36 Est GFR (MDRD) Af Amer > 60 (>60) 11/24/22 04:36 Est GFR (MDRD) Non-Af > 60 (>60) 11/24/22 04:36 Glucose 130 mg/dL (65-99) H 11/24/22 04:36 POC Glucose (mg/dL) 130 mg/dL (65-99) H 11/25/22 05:34 Hemoglobin A1c 9.1 % 11/19/22 13:33 Calcium 8.6 mg/dL (8.5-10.1) 11/24/22 04:36 Corrected Calcium 9.6 mg/dL (8.5-10.1) 11/24/22 04:36 Total Bilirubin 0.40 mg/dL (0.2-1.0) 11/24/22 04:36 AST 22 Units/L (15-37) 11/24/22 04:36 ALT 30 Units/L (12-78) 11/24/22 04:36 Alkaline Phosphatase 100 Units/L (46-116) 11/24/22 04:36 Total Protein 6.5 g/dL (6.4-8.2) 11/24/22 04:36 Albumin 2.7 g/dL (3.4-5.0) L 11/24/22 04:36 Globulin 3.8 g/dL (2.5-4.5) 11/24/22 04:36 Albumin/Globulin Ratio 0.7 Ratio (1.1-2.1) L 11/24/22 04:36 Reason For Visit: CRITICAL ISCHEMIA LEFT LOWER EXTREMITY WITH WOUND Discharge Diagnosis All Active Problems (Updated 11/19/22 @ 20:50 by Artie Scott) Tobacco use (Acute) Cellulitis of left foot (Acute) 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 Pt is to keep follow up appointment as instructed and take medications as ordered. Discharge Medications Discharge Medications: No Known Allergies Allergy (Verified 11/19/22 14:04) CONTINUE taking the following medications atorvastatin 40 mg tablet 40 mg PO HS 11/19/22 [History] cyclobenzaprine 10 mg tablet 10 mg PO BID 11/19/22 [History] gabapentin 600 mg tablet 300 mg PO HS 11/19/22 [History] glimepiride 2 mg tablet 2 mg PO DAILY 11/19/22 [History] hydroxyzine pamoate 25 mg capsule 25 mg PO HS 11/19/22 [History] lisinopril 20 mg tablet 20 mg PO DAILY 11/19/22 [History] meclizine 25 mg tablet 25 mg PO DAILY PRN 11/19/22 [History] metformin 500 mg tablet,extended release 24 hr 1,000 mg PO BID 11/19/22 [History] metoprolol tartrate 25 mg tablet 25 mg PO BID 11/19/22 [History] sulfamethoxazole 800 mg-trimethoprim 160 mg tablet (Bactrim DS) 1 tab PO BID 11/19/22 [History] New Prescriptions aspirin 81 mg capsule 81 mg PO QDAY #90 caps 11/25/22 [Rx] aspirin 81 mg tablet,delayed release 81 mg PO DAILY #100 tabs 11/25/22 [Rx] clindamycin HCl 150 mg capsule 150 mg PO QID #14 caps 11/25/22 [Rx] clindamycin HCl 150 mg capsule 150 mg PO QID #20 caps 11/25/22 [Rx] rivaroxaban 2.5 mg tablet (Xarelto) 2.5 mg PO BID #60 tabs 11/25/22 [Rx] rivaroxaban 2.5 mg tablet (Xarelto) 2.5 mg PO BID #60 tabs 11/25/22 [Rx] Discharge Disposition Assessment: No acute distress noted at time of discharge. Discharge Plan Discharge Plan Hospital Course: 46 year old female transferred to [facility] from an outside facility with non-healing wound to the left heel and left lateral foot with cellulitis and rest pain. She had no palpable pulses of the left foot. Good pulses in the left groin. The patient was admitted on the 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 The next day she underwent atherectomy and drug coated ballon angioplasty of the entire left superficial femoral artery and angioplasty of the left posterior tibial artery . Arterial flow re- established in the left foot. She continued on IV antibiotics and was returned to the operating Suite on November 24 for debridement of the left lateral foot which continues to improve. She will be discharged today on clindamycin 150 mg qid, aspirin 81 mg daily, Xarelto 2.5 mg BID and her usual home medications. She will follow up with me in 1 week. She will follow up with Dr. Gandhi in one week as well. Apply Bacitracin to left foot wound BID. Wash with soap and water once per day. Patient Disposition: HOME, SELF-CARE Condition: Stable Health Concerns: Post Hospitalization: new medications and changes needed to prevent readmission or further decline. Pt educated and given instructions on all concerns. Care Plan Goals: Problem: Altered Tissue Perfusion Goal: Adequate Tissue Perfusion Instructions: Follow provided instructions. Follow up with primary physician as directed. Contact primary care physician or report to the closest Emergency Room if condition worsens. Plan of Treatment: Continue with present treatment and follow up plan. Pt is to keep follow up appointment as instructed and take medications as ordered. Assessment: No acute distress noted at time of discharge. Prescriptions: New aspirin 81 mg capsule 81 mg PO QDAY Qty: 90 0RF clindamycin HCl 150 mg capsule 150 mg PO QID Qty: 20 0RF Xarelto 2.5 mg tablet 2.5 mg PO BID Qty: 60 6RF aspirin 81 mg Tablet,Delayed Release (Dr/Ec) 81 mg PO DAILY Qty: 100 0RF Xarelto 2.5 mg Tablet 2.5 mg PO BID Qty: 60 6RF clindamycin HCl 150 mg capsule 150 mg PO QID Qty: 14 0RF Continued cyclobenzaprine 10 mg Tablet 10 mg PO BID atorvastatin 40 mg Tablet 40 mg PO HS gabapentin 600 mg Tablet 300 mg PO HS lisinopril 20 mg Tablet 20 mg PO DAILY sulfamethoxazole-trimethoprim [Bactrim DS] 800-160 mg Tablet 1 tab PO BID Rx Instructions: PRESCRIBED 11/18/2022 #28 glimepiride 2 mg Tablet 2 mg PO DAILY meclizine 25 mg Tablet 25 mg PO DAILY PRN metformin 500 mg Tablet Extended Release 24 Hr 1,000 mg PO BID Label Comments: PT HAD CT WITH CONTRAST PRIOR TO ADMISSION. INSTRUCTED TO HOLD MEDICATION UNTIL ThursdayNovember AT 15:30. hydroxyzine pamoate 25 mg Capsule 25 mg PO HS metoprolol tartrate 25 mg Tablet 25 mg PO BID Follow ups/Referrals Follow ups/Referrals: Artie Scott [Primary Care Provider] - 1 WEEK (`) Instructions Stand Alone Forms: Excuse From Work or School
[2022-11-25 17:10] VITALS: BP 137/72
--- NOTE | 2022-11-26 13:55 | DR.OPNOTE ---
OP NOTE Pre-Op Diagnosis: Severe critical limb ischemia left leg with tissue loss Post-Op Diagnosis: same Procedure Date Date Of Procedure: 11/20/22 Procedure: PROCEDURE: DIAGNOSTIC AORTOGRAM, DIAGNOSTIC ARTERIOGRAM LEFT LEG, ATHERECTOMY AND DRUG COATED BALLOON ANGIOPLASTY ENTIRE LEFT SUPERFICAL FEMORAL AND POLITEAL ARTERIES, ANGIOPLASTY OF THE LEFT POSTERIOR TIBIAL ARTERY NARRATIVE: The patient was taken to the operative suite and placed in the Supine position. The right groin and entire left leg were prepped and draped in sterile fashion. The patient was given intravenous sedation which was supervised by myself. Time out for the procedure obtained. Ultrasound used to identify the right common femoral artery and the skin over lying it infiltrated with 0.5% Marcaine. Ultrasound then used to guide puncture of the right common femoral artery and a 0.012 inch guide wire placed. Incision made over the guide wire at the skin edge with a number 11 knife blade and a micro sheath placed over the guide wire into the right femoral artery. Small guide wire exchanged for a 0.035 inch Advantage glide wire and the micro sheath exchanged for a 5 Fr vascular sheath. Omni catheter was placed over the guide wire into the aorta and aortogram carried out using the power injector showing a normal aorta and normal iliac arteries bilaterally. Omni catheter used to steer the catheter down the left common iliac artery to the distal left external iliac artery. 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 There was minimal disease of the popliteal artery as well. There was also significant disease of the proximal left posterior tibial artery. The patient was given five thousand units of intravenous Heparin. Additional 3000 units of heparin given at 1 hour. The five Fr sheath in the right groin exchanged for a 7 Fr destination sheath which was parked in the left external iliac artery. Using the 0.035 inch wire and Menlo catheter we attempted to get across the complete total occlusion but could not get beyond the adductor canal. For this reason we elected to attempt retrograde approach . Ultrasound used to identify the left posterior tibial artery and the skin infiltrated with 0.5 % Marcaine . Ultrasound used to guide puncture of the left posterior tibial artery at the ankle and a 0.012 inch guide wire placed . Micro sheath placed over the guide wire into the posterior tibial artery artery and arteriogram confirmed that this was deed the left posterior tibial artery. The micro sheath exchanged for a 6 [place] vascular sheath . Using Menlo catheter and the 0.035 inch wire, we were able to get across the complete occlusion from the ankle all the way to the left iliac artery . The served as selective catheterization. Menlo catheter was taken up into the left iliac artery and the 0.035 inch wire was exchanged for a 0.014 inch guide wire . Over the 0.014 inch wire we placed the Jet stream atherectomy device and performed atherectomy of the popliteal artery and the complete total occlusion of the superficial femoral artery .Left posterior tibial artery was balloon dilated with a 3mmx 220 mm Klever balloon balloon. The left popliteal artery was dilated with a 4 [id number] mm Prospect drug-coated balloon expanding for three minutes. This removed and the dilation of the left superficial femoral artery performed with two 6 mm x 200 mm drug-coated Prospect balloons each inflated for 3 minutes. All devices removed . Arteriogram showed excellent flow all the way to the ankle. All devices and wires removed. Arteriogram showed excellent result . The sheath in the left posterior tibial artery removed and a tibial band placed over this puncture site The diagnostic sheath pulled back into the aorta and a 0.035 inch wire placed. The diagnostic sheath removed and exchanged for an Angio seal device over the wire used to close the puncture site of the right femoral artery Dressing applied . She tolerated this well and was taken to her room in good condition. 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 tolerated procedure without difficulty. Patient taken back to her roon in stable condition.
--- NOTE | 2022-11-26 14:22 | DR.OPNOTE ---
OP NOTE Pre-Op Diagnosis: open necrotic wound left lateral foot and heel Post-Op Diagnosis: same Procedure Date Date Of Procedure: 11/24/22 Procedure: PROCEDURE: EXCISIONAL DEBRIDEMENT LEFT LATERAL FOOT AND ANKLE WOUND NARRATIVE : Patient taken to the operative suite and placed in the the supine position and the left foot prepped and draped in sterile fashion. Patient given IV sedation supervised by myself. Time out for the procedure obtained . There were two sinus tracts which were probed with a hemostat and unroofed in excisional fashion with a # 11knife blade. Entire area excisionally debrided with a currette. Dressing applied . Edern taken back to her room. Type of Anesthesia: Local (0.5% Marcaine ) Anesthesia Comment: MAC Findings: Necrotic wound left lateral foot and heel. Improved after IV antibiotics and re-vascularization of the left leg Specimen/Pathology: culture left foot wound Type of Fluids Used:: Lactated Ringers EBL: minimal Cultures: yes Complications:: none Needle/Sponge Count:: correct Disposition/Condition: Pt. tolerated procedure without difficulty. Taken back to her room in stable condition.
== END 2022-11-25 13:30 | disposition home or self-care (01) | DRG 271 ==
LOC: MED/SURG → OBSVTOIN 12:59
PROVIDERS: ADMIT Surgery; ATTEND Surgery
DX: I70.222 Atherosclerosis of native arteries of extremities with rest pain, left leg; B95.62 Methicillin resistant Staphylococcus aureus infection as the cause of diseases classified elsewhere; I10 Essential (primary) hypertension; E11.40 Type 2 diabetes mellitus with diabetic neuropathy, unspecified; L03.116 Cellulitis of left lower limb; E78.1 Pure hyperglyceridemia; E11.65 Type 2 diabetes mellitus with hyperglycemia; E11.621 Type 2 diabetes mellitus with foot ulcer; Z72.0 Tobacco use; L97.428 Non-pressure chronic ulcer of left heel and midfoot with other specified severity